=== PATIENT | female | born 1960 | race Caucasian/White ===

== ENCOUNTER → 2020-03-09 08:26 | Outpatient (BNVA) | payer MEDICARE, OTHER, SELFPAY | PROVIDERS: PCP Family Medicine; Referring Provider Family Medicine; Visit Provider Student in an Organized Health Care Education/Training Program | DX: G89.29 Other chronic pain (principal); M54.5 Low back pain | CPT/HCPCS: 99212 ==

== ENCOUNTER 2021-02-17 09:40 | Outpatient (REF) | payer MEDICARE, OTHER, SELFPAY ==
[2021-02-17 12:23] LABS: Alanine Aminotransferase 91 U/L (0-31); Albumin Level 4.7 g/dL (3.5-5.0); Alkaline Phosphatase 73 U/L (39-117); Anion Gap 13 (12-20); Aspartate Amino Transferase 38 U/L (5-31); Bilirubin Total 0.3 mg/dL (0.0-1.0); Blood Urea Nitrogen 17 mg/dL (9-16); Calcium 9.9 mg/dL (8.4-10.2); Carbon Dioxide 24 mmol/L (22-29); Chloride 101 mmol/L (96-108); Estimated Glomerular Filt Rate 43; Glucose Random 98 mg/dL (60-115); Potassium 5.2 mmol/L (3.3-5.1); Sodium 133 mmol/L (135-145)
== END 2021-02-17 09:41 | disposition home or self-care (01) ==
LOC: HO.LAB 09:40
PROVIDERS: PCP Family Medicine; Visit Provider Nurse Practitioner Family
DX: M54.30 Sciatica, unspecified side (principal); G89.29 Other chronic pain; Z79.891 Long term (current) use of opiate analgesic; Z87.891 Personal history of nicotine dependence; Z79.899 Other long term (current) drug therapy
CPT/HCPCS: 36415; 80053; 99212

== ENCOUNTER → 2021-11-21 07:53 | Outpatient (BNVA) | payer MEDICARE, OTHER, SELFPAY | PROVIDERS: PCP Family Medicine; Visit Provider Nurse Practitioner Family | DX: G89.29 Other chronic pain (principal); M54.50 Low back pain, unspecified; M10.9 Gout, unspecified; M21.611 Bunion of right foot; M21.612 Bunion of left foot; Z79.899 Other long term (current) drug therapy | CPT/HCPCS: 99212 ==

== ENCOUNTER → 2022-06-20 14:17 | Outpatient (BNVA) | payer MEDICARE, OTHER, SELFPAY | PROVIDERS: PCP Family Medicine; Visit Provider Nurse Practitioner Family | DX: M10.9 Gout, unspecified (principal); M21.611 Bunion of right foot; M21.612 Bunion of left foot; M47.812 Spondylosis without myelopathy or radiculopathy, cervical region; M47.816 Spondylosis without myelopathy or radiculopathy, lumbar region | CPT/HCPCS: 99212 ==

== ENCOUNTER 2022-12-19 14:28 | Outpatient (AMB) | payer MEDICARE, OTHER, SELFPAY ==
[2022-12-19 14:40] VITALS: BP 112/68; PULSE 74; TEMP 36.8; O2SAT 91; BMI 29.8
--- NOTE | 2022-12-19 14:40 | A.OFFVIS_ITS ---
Intake Vital Signs 12/19/22 14:40 Height 5 ft 6 in Weight 184 lb 11.958 oz BMI 29.8 BP 112/68 Blood Pressure Location Rt brachial Position Sitting Pulse 74 Pulse Source Pulse Oximeter Temp 98.2 F Temp Source Skin Pulse Oximetry (%) 91 L Intake Visit Reasons: lbp Intake Note: * Pt seen today for lbp follow up. * C/o morning stiffnes. States the pain is worse in the morning. * Mentions Chelle wanted her to go off of gabapentin but she could not move because of the pain when she tried to stop taking it. Certified Pediatric Nurse Practitioner Required: No Accompanied by: Self / Same As Patient Allergies epinephrine Allergy (Severe, Verified 12/19/22 14:46) seizures,rapid heartbeat penicillin V Allergy (Mild, Verified 12/19/22 14:46) Rash sulfur Allergy (Mild, Verified 12/19/22 14:46) Rash Lactose Allergy (Intermediate, Uncoded 12/19/22 14:46) abd pain Erythromycin Allergy (Mild, Uncoded 12/19/22 14:46) Rash Medication List - Last Reconciled 12/19/22 by Justina Edwards MD albuterol sulfate 90 mcg/actuation 2 puffs inhalation Q6H PRN allopurinol 300 mg PO DAILY atorvastatin 20 mg PO DAILY gabapentin 800 mg PO TID metoclopramide HCl 10 mg PO DAILY metoprolol tartrate 50 mg PO BID pantoprazole 40 mg PO DAILY tizanidine 2 mg PO TID PRN tramadol 50 mg PO QID HPI HPI Comments History of Present Illness Details 62yoF presents for follow-up of back pain. Last seen by Shelby Camarena 07/05 Patient states that she continues have to feel about the same. Continues to have mid to lower back pain that intermittently radiates to her right lower extremity. Gets pain and stiffness in her hands. Usually worse in the morning. Improved with taking her meds and putting her hands under warm water. Continues to take gabapentin 800 mg t.i.d., tizanidine 2 mg t.i.d. and tramadol 50 mg q.i.d. PFSH Family History Mother Rheumatoid arthritis Father Rheumatoid arthritis Maternal Aunt Osteoarthritis Social History Alcohol intake: never Patient Tobacco Use Status: Former Tobacco user Tobacco use type: Cigarette Substance Use Type: Marijuana Review of Systems [facility] [place] pain and Reports arthralgias Physical Exam Vital Signs: Last Vital Signs Temp 98.2 F 12/19/22 14:40 Pulse 74 12/19/22 14:40 BP 112/68 12/19/22 14:40 Pulse Ox 91 L 12/19/22 14:40 BMI result Body Mass Index 29.8 Const General: cooperative, healthy appearing and comfortable Nutritional Appearance: overweight Orientation/consciousness: patient oriented x3 Limitations: no limitations HEENT Head: Yes normocephalic and Yes atraumatic Mouth: moist mucous membranes Resp Effort & Inspection: normal respiratory effort and able to speak in complete sentences Back/Spine/Pelvis Thoracic/Lumbar Spine: Thoracic/lumbar scoliosis Neuro General: patient oriented x3 Extrem Other: Osteoarthritic changes of both hands with prominent Fitz's and Heberden's nodes Assessment & Plan Assessment & Plan (1) Degenerative arthritis of lumbar spine: Code(s): M47.816 - Spondylosis without myelopathy or radiculopathy, lumbar region Plan: 62-year-old female patient with chronic back pain. History of scoliosis.? Previous x-rays showed degenerative changes in the cervical, thoracic and lumbar spine.? Her pain is well controlled at this time with tizanidine, tramadol and gabapentin.? She states that she tried to reduce the gabapentin dose and she felt she was frozen she states that she has been on this combination of meds for more than 20 years without side effects. Continue current meds. Refilled Patient states that she has done labs recently at [facility]. Will attempt to retrieve those labs. (2) Degenerative arthritis of cervical spine: Code(s): M47.812 - Spondylosis without myelopathy or radiculopathy, cervical region Plan: Continue current medications. (3) Gout: Code(s): M10.9 - Gout, unspecified Plan: Following with Nephrology and treated for gout. Currently taking 300 mg of allopurinol daily with good control of her gout symptoms. Medications: New tramadol 50 mg PO QID 120 tabs 2RF pain M47.816 - Spondylosis without myelopathy or radiculopathy, lumbar region Coding Level of Care Code Est Pt Level 3 (83593) Diagnoses Degenerative arthritis of lumbar spine M47.816 Degenerative arthritis of cervical spine M47.812 Gout M10.9
== END 2022-12-19 15:28 | disposition home or self-care (01) ==
PROVIDERS: PCP Family Medicine; Visit Provider Student in an Organized Health Care Education/Training Program
DX: M47.816 Spondylosis without myelopathy or radiculopathy, lumbar region (principal); M47.812 Spondylosis without myelopathy or radiculopathy, cervical region; M10.9 Gout, unspecified
CPT/HCPCS: 99213

== ENCOUNTER → 2022-12-19 14:28 | Outpatient (BNVA) | payer MEDICARE, OTHER, SELFPAY | PROVIDERS: PCP Family Medicine; Visit Provider Student in an Organized Health Care Education/Training Program | DX: M47.816 Spondylosis without myelopathy or radiculopathy, lumbar region (principal); M47.812 Spondylosis without myelopathy or radiculopathy, cervical region; M10.9 Gout, unspecified | CPT/HCPCS: 99212 ==

== ENCOUNTER 2023-08-07 09:41 | Outpatient (AMB) | payer MEDICARE, OTHER, SELFPAY ==
--- NOTE | 2023-08-07 09:42 | MHC.OFFVIS ---
Intake Vital Signs 08/07/23 09:49 Height 5 ft 6 in Weight 177 lb 4.026 oz BMI 28.6 BP 102/62 Blood Pressure Location Lt brachial Position Sitting Pulse 80 Pulse Source Pulse Oximeter Temp 97 F Temp Source Skin Pulse Oximetry (%) 95 Oxygen Delivery Method Room Air Intake Visit Reasons: LBP/CMI/CONFIRMED Intake Note: Patient last seen 12/19/22 presents today for follow up. Reports stiffness in her hands. Feels her gabapentin is wearing off before the next dose. 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 Accompanied by: Self / Same As Patient Allergies epinephrine Allergy (Severe, Verified 12/19/22 14:46) seizures,rapid heartbeat penicillin V Allergy (Mild, Verified 12/19/22 14:46) Rash sulfur Allergy (Mild, Verified 12/19/22 14:46) Rash Lactose Allergy (Intermediate, Uncoded 12/19/22 14:46) abd pain Erythromycin Allergy (Mild, Uncoded 12/19/22 14:46) Rash Medication List - Last Reconciled 08/07/23 by Justina Edwards MD albuterol sulfate 90 mcg/actuation 2 puffs inhalation Q6H PRN allopurinol 300 mg PO DAILY atorvastatin 20 mg PO DAILY gabapentin 800 mg PO TID metoclopramide HCl 10 mg PO DAILY metoprolol tartrate 50 mg PO BID pantoprazole 40 mg PO DAILY tizanidine 2 mg PO TID PRN tramadol 50 mg PO Q6H PRN HPI HPI Comments History of Present Illness Details 62yoF with generalized osteoarthritis returns for follow-up. She states that recently she has been have bilateral hand stiffness. She feels that she feels the stiffness a few hours before she is due for her next gabapentin dose. And the gabapentin takes about 90 minutes to work. She gets intermittent triggering of both middle fingers, sometimes she gets triggering of the ring fingers as well. She stated that she had a trigger finger injection about 10 years ago and lasted at least 3 months. [facility] Family History Mother Rheumatoid arthritis Father Rheumatoid arthritis Maternal Aunt Osteoarthritis Social History Alcohol intake: never Patient Tobacco Use Status: Former Tobacco user Tobacco use type: Cigarette Substance Use Type: Marijuana Review of Systems [facility] [place] Reports arthralgias and Reports stiffness Physical Exam Vital Signs: Last Vital Signs Temp 97 F 08/07/23 09:49 Pulse 80 08/07/23 09:49 BP 102/62 08/07/23 09:49 Pulse Ox 95 08/07/23 09:49 Oxygen Delivery Method Room Air 08/07/23 09:49 BMI result Body Mass Index 28.6 Const General: cooperative, healthy appearing and comfortable Nutritional Appearance: overweight Orientation/consciousness: patient oriented x3 Limitations: no limitations HEENT Head: Yes normocephalic and Yes atraumatic Mouth: moist mucous membranes Resp Effort & Inspection: normal respiratory effort and able to speak in complete sentences Back/Spine/Pelvis Thoracic/Lumbar Spine: Thoracic/lumbar scoliosis Neuro General: patient oriented x3 Extrem Other: Osteoarthritic changes of both hands with prominent Fitz's and Heberden's nodes Her right hand triggering of right index finger and middle finger Left hand triggering of left middle finger Office Procedures Tendon Injection Tendon Injection Details: With patient's consent, The right palm was prepped with ChloraPrep and alcohol. Under a topical ethyl chloride spray the [3rd] flexor tendon sheath was injected with 20 mg of triamcinolone and 0.2 cc of 1% lidocaine. Then, The palm of the left hand was prepped with ChloraPrep and alcohol. Under topical ethyl chloride spray the [3rd] flexor tendon sheath was injected with 20 mg of triamcinolone and 0.2 cc of 1% lidocaine. The patient tolerated the procedure without any acute complications. [id number] Tendon Sheath Injection All charges added?: Procedure code (CPT) selection complete (Trigger finger x2) Assessment & Plan Assessment & Plan (1) Degenerative arthritis of lumbar spine: Code(s): M47.816 - Spondylosis without myelopathy or radiculopathy, lumbar region Qualifiers: Spinal osteoarthritis complication: without myelopathy or radiculopathy Qualified Code(s): M47.816 - Spondylosis without myelopathy or radiculopathy, lumbar region Plan: 62-year-old female patient with chronic back pain. History of scoliosis.? Previous x-rays showed degenerative changes in the cervical, thoracic and lumbar spine.? Her pain is well controlled at this time with tizanidine, tramadol and gabapentin.? She states that she tried to reduce the gabapentin dose and she felt she was frozen she states that she has been on this combination of meds for more than 20 years without side effects. Continue current meds. (2) Gout: Code(s): M10.9 - Gout, unspecified Qualifiers: Gout site: multiple sites Gout etiology: idiopathic Chronicity: chronic Presence of tophus: without tophus Qualified Code(s): M1A.09X0 - Idiopathic chronic gout, multiple sites, without tophus (tophi) Plan: Following with Nephrology and treated for gout. Currently taking 300 mg of allopurinol daily with good control of her gout symptoms. (3) Osteoarthritis of hands, bilateral: Code(s): M19.041 - Primary osteoarthritis, right hand; M19.042 - Primary osteoarthritis, left hand Qualifiers: Osteoarthritis type: primary Qualified Code(s): M19.041 - Primary osteoarthritis, right hand; M19.042 - Primary osteoarthritis, left hand Plan: Referred to occupational therapy (4) Acquired trigger finger of both middle fingers: Code(s): M65.331 - Trigger finger, right middle finger; M65.332 - Trigger finger, left middle finger Plan: With patient's consent, trigger finger of both middle fingers was injected in clinic today. Advised patient to start wearing a finger splints. Follow-up with occupational therapy Plan I spent 26 minutes reviewing patient's chart, evaluating patient, placing orders, counseling patient and documenting in the chart Orders: Orders AMB Injection-Tendon Today M65.331 - Trigger finger, right middle finger, M65.332 - Trigger finger, left middle finger OT Evaluation and Treatment Today M19.041 - Primary osteoarthritis, right hand, M19.042 - Primary osteoarthritis, left hand, M65.331 - Trigger finger, right middle finger, M65.332 - Trigger finger, left middle finger Coding Level of Care Code Est Pt Level 4 (60420) Diagnoses Spondylosis of lumbar region without myelopathy or radiculopathy M47.816 Spinal osteoarthritis complication: without myelopathy or radiculopathy Idiopathic chronic gout of multiple sites without tophus M1A.09X0 Gout site: multiple sites Gout etiology: idiopathic Chronicity: chronic Presence of tophus: without tophus Primary osteoarthritis of both hands M19.041; M19.042 Osteoarthritis type: primary Acquired trigger finger of both middle fingers M65.331; M65.332 CPT Codes Tendon Injection - Tendon Injection 1: [id number] Tendon Sheath Injection ([id number])
[2023-08-07 09:49] VITALS: BP 102/62; PULSE 80; TEMP 36.1; O2SAT 95; BMI 28.6
== END 2023-08-07 10:16 | disposition home or self-care (01) ==
PROVIDERS: PCP Family Medicine; Visit Provider Student in an Organized Health Care Education/Training Program
DX: M47.816 Spondylosis without myelopathy or radiculopathy, lumbar region (principal); M1A.09X0 Idiopathic chronic gout, multiple sites, without tophus (tophi); M19.041 Primary osteoarthritis, right hand; M19.042 Primary osteoarthritis, left hand; M65.331 Trigger finger, right middle finger; M65.332 Trigger finger, left middle finger
CPT/HCPCS: 20550; 99213

== ENCOUNTER → 2023-08-07 09:41 | Outpatient (BNVA) | payer MEDICARE, OTHER, SELFPAY | PROVIDERS: PCP Family Medicine; Visit Provider Student in an Organized Health Care Education/Training Program | DX: M19.041 Primary osteoarthritis, right hand (principal); M19.042 Primary osteoarthritis, left hand; M65.331 Trigger finger, right middle finger; M65.332 Trigger finger, left middle finger; M25.642 Stiffness of left hand, not elsewhere classified; M25.641 Stiffness of right hand, not elsewhere classified; M47.816 Spondylosis without myelopathy or radiculopathy, lumbar region; M1A.09X0 Idiopathic chronic gout, multiple sites, without tophus (tophi); R20.2 Paresthesia of skin; Z79.899 Other long term (current) drug therapy | CPT/HCPCS: 20550; 99212 ==

== ENCOUNTER 2024-04-16 13:15 | Outpatient (AMB) | payer MEDICARE, OTHER, SELFPAY ==
--- NOTE | 2024-04-16 13:22 | MHC.OFFVIS ---
Vital Signs 04/16/24 13:28 Height 5 ft 6 in Weight 184 lb 11.958 oz BMI 29.8 BP 120/72 Blood Pressure Location Lt brachial Position Sitting Pulse 80 Pulse Source Pulse Oximeter Pulse Oximetry (%) 96 Oxygen Delivery Method Room Air Intake Visit Reasons: OA Intake Note: Patient presents for OA. Allergies epinephrine Allergy (Severe, Verified 04/16/24 13:27) seizures,rapid heartbeat penicillin V Allergy (Mild, Verified 04/16/24 13:27) Rash sulfur Allergy (Mild, Verified 04/16/24 13:27) Rash Lactose Allergy (Intermediate, Uncoded 12/19/22 14:46) abd pain Erythromycin Allergy (Mild, Uncoded 12/19/22 14:46) Rash Medication List - Last Reconciled 04/16/24 by Justina Edwards MD albuterol sulfate 90 mcg/actuation 2 puffs inhalation Q6H PRN allopurinol 300 mg PO DAILY atorvastatin 20 mg PO DAILY gabapentin 800 mg PO TID metoclopramide HCl 10 mg PO DAILY metoprolol tartrate 50 mg PO BID pantoprazole 40 mg PO DAILY tizanidine 2 mg PO TID PRN tramadol 50 mg PO Q6H PRN HPI Comments Details: 63yoF with generalized osteoarthritis returns for follow-up. The trigger finger injection done last visit 9 months ago was quite effective. She states that the right middle finger injection was great, she starting to have some stiffness of her left 3rd finger but it is not painful. [facility] Family History Mother Rheumatoid arthritis Father Rheumatoid arthritis Maternal Aunt Osteoarthritis Social History Alcohol intake: never Patient Tobacco Use Status: Former Tobacco user Tobacco use type: Cigarette Substance Use Type: Marijuana Review of Systems [facility] [place] Reports arthralgias and Reports stiffness Physical Exam Vital Signs: Last Vital Signs Pulse 80 04/16/24 13:28 BP 120/72 04/16/24 13:28 Pulse Ox 96 04/16/24 13:28 Oxygen Delivery Method Room Air 04/16/24 13:28 BMI result Body Mass Index 29.8 Const General: cooperative, healthy appearing and comfortable Nutritional Appearance: overweight Orientation/consciousness: patient oriented x3 Limitations: no limitations HEENT Head: Yes normocephalic and Yes atraumatic Mouth: moist mucous membranes Resp Effort & Inspection: normal respiratory effort and able to speak in complete sentences Back/Spine/Pelvis Thoracic/Lumbar Spine: Thoracic/lumbar scoliosis Neuro General: patient oriented x3 Extrem Other: Osteoarthritic changes of both hands with prominent Fitz's and Heberden's nodes Her right hand triggering of middle finger Mild left 3rd finger flexor tendon tenderness Assessment & Plan Assessment & Plan (1) Degenerative arthritis of lumbar spine: Code(s): M47.816 - Spondylosis without myelopathy or radiculopathy, lumbar region Category: Medical Qualifiers: Spinal osteoarthritis complication: without myelopathy or radiculopathy Qualified Code(s): M47.816 - Spondylosis without myelopathy or radiculopathy, lumbar region Plan: 62-year-old female patient with chronic back pain. History of scoliosis.? Previous x-rays showed degenerative changes in the cervical, thoracic and lumbar spine.? Her pain is well controlled at this time with tizanidine, tramadol and gabapentin.? She states that she tried to reduce the gabapentin dose and she felt she was frozen she states that she has been on this combination of meds for more than 20 years without side effects. Continue current meds. Follow-up in 6 months (2) Gout: Code(s): M10.9 - Gout, unspecified Plan: Following with Nephrology and treated for gout. Currently taking 300 mg of allopurinol daily with good control of her gout symptoms. (3) Osteoarthritis of hands, bilateral: Code(s): M19.041 - Primary osteoarthritis, right hand; M19.042 - Primary osteoarthritis, left hand Category: Medical Qualifiers: Osteoarthritis type: primary Qualified Code(s): M19.041 - Primary osteoarthritis, right hand; M19.042 - Primary osteoarthritis, left hand (4) Acquired trigger finger of both middle fingers: Code(s): M65.331 - Trigger finger, right middle finger; M65.332 - Trigger finger, left middle finger Category: Medical Plan: Bilateral middle finger trigger finger injected with Kenalog 07/2023 with good relief Injections can be repeated as needed Advised patient to wear finger splints at night Plan I spent 15 minutes reviewing patient's chart, evaluating patient, 0counseling patient and documenting in the chart Coding Level of Care Code Est Pt Level 3 (14533) Diagnoses Spondylosis of lumbar region without myelopathy or radiculopathy M47.816 Spinal osteoarthritis complication: without myelopathy or radiculopathy Gout M10.9 Primary osteoarthritis of both hands M19.041; M19.042 Osteoarthritis type: primary Acquired trigger finger of both middle fingers M65.331; M65.332
[2024-04-16 13:28] VITALS: BP 120/72; PULSE 80; O2SAT 96; BMI 29.8
== END 2024-04-16 13:54 | disposition home or self-care (01) ==
PROVIDERS: PCP Family Medicine; Visit Provider Student in an Organized Health Care Education/Training Program
DX: M47.816 Spondylosis without myelopathy or radiculopathy, lumbar region (principal); M10.9 Gout, unspecified; M19.041 Primary osteoarthritis, right hand; M19.042 Primary osteoarthritis, left hand; M65.331 Trigger finger, right middle finger; M65.332 Trigger finger, left middle finger
CPT/HCPCS: 99213

== ENCOUNTER → 2024-04-16 13:15 | Outpatient (BNVA) | payer MEDICARE, OTHER, SELFPAY | PROVIDERS: PCP Family Medicine; Visit Provider Student in an Organized Health Care Education/Training Program | DX: M47.816 Spondylosis without myelopathy or radiculopathy, lumbar region (principal); M10.9 Gout, unspecified; M19.041 Primary osteoarthritis, right hand; M19.042 Primary osteoarthritis, left hand; M65.331 Trigger finger, right middle finger; M65.332 Trigger finger, left middle finger | CPT/HCPCS: 99212 ==

== ENCOUNTER 2024-10-14 13:32 | Outpatient (AMB) | payer MEDICARE, OTHER, SELFPAY ==
--- OUTSIDE RECORDS SUMMARY | 2024-10-14 13:45 | XMS_ITS | Encounter Summary ---
Author Organization [facility], Address [address] [place] [address] Phone Care Team Providers Care Retail Client Solutions Analyst Name Role Phone Arslan Birmingham DO Primary Care Provider [phone] Encounter Details Date Type Department Care Team (Late st Contact Info) Description 07/28/2021 Documentation Only [facility] [address] [place] [address] Arslan Birmingham DO [address] [place] [address] Social History Tobacco Use Types Packs/Day Years Used Date Smoking Tobacco: Never Assessed Comments Unknown Sex and Gender Information Value Date Recorded Sex Assigned at Not on file Legal Sex Female 4:49 PM EDT Gender Identity Not on file Sexual Orientation Not on file documented as of this encounter Plan of Treatment Upcoming Encounters Date Type Department Care Team (Late st Contact Info) Description 04/05/2025 1:30 PM EST Office Visit [facility] [address] [place] [address] Lyle Hay MD [address] [place] [address] [place] [address] documented as of this encounter Visit Diagnoses Not on filedocumented in this encounter Care Teams Retail Client Solutions Analyst Relationship Specialty Start Date End Date Arslan Birmingham DO [address] [place] [address] PCP - General Family Medicine 07/25/21 documented as of this encounter
[2024-10-14 13:59] VITALS: BP 122/78; PULSE 77; O2SAT 96; BMI 29.8
--- NOTE | 2024-10-14 13:59 | MHC.OFFVIS ---
Vital Signs 10/14/24 13:59 Height 5 ft 6 in Weight 184 lb 11.958 oz BMI 29.8 BP 122/78 Blood Pressure Location Lt brachial Position Sitting Pulse 77 Pulse Source Pulse Oximeter Pulse Oximetry (%) 96 Oxygen Delivery Method Room Air Intake Visit Reasons: OA Intake Note: Patient presents for follow up on gout, and osteoarthritis. Allergies epinephrine Allergy (Severe, Verified 10/14/24 14:03) seizures,rapid heartbeat penicillin V Allergy (Mild, Verified 10/14/24 14:03) Rash sulfur Allergy (Mild, Verified 10/14/24 14:03) Rash Lactose Allergy (Intermediate, Uncoded 10/14/24 14:03) abd pain Erythromycin Allergy (Mild, Uncoded 10/14/24 14:03) Rash HPI Comments Details: Patient is a 63-year-old female with asthma, hyperlipidemia, hypertension, polyarticular osteoarthritis and non crystal proven gout here today for follow up Interval History: Patient last seen 04/16/[address] Edwards. At that time she was following up for her polyarticular osteoarthritis. She had previously gotten trigger finger injection which was effective for the right middle finger. Today, She is doing well Has an uncoming abdominal surgery for a precancernous lesion in the bile duct Rheumatologic History: Polyarticular osteoarthritis Diagnosed with gout from nephrology Current Rheumatology Medication(s): gabapentin 800mg tid tizanidine 2mg tid tramadol 50mg q6hr PFSH Family History Mother Rheumatoid arthritis Father Rheumatoid arthritis Maternal Aunt Osteoarthritis Social History Alcohol intake: never Patient Tobacco Use Status: Former Tobacco user Tobacco use type: Cigarette Substance Use Type: Marijuana Review of Systems Const Details: Review of Systems Constitutional: Denies fever, chills, weight loss ENT: Denies vision changes, eye pain or eye redness, dental caries, dry mouth GI: Denies nausea, vomiting, diarrhea, abdominal pain, change in BM Pulm: Denies SOB, PHILLIPS, hemoptysis, wheezing Cards: Denies chest pain, palpitations Skin: Denies Raynaud's, rash, nail changes, photosensitivity, QUALITY ASSURANCE COORDINATOR: Denies headaches, weakness, paresthesias, recurrent falls MSK: as per HPI All other systems reviewed and are unremarkable except noted above Physical Exam Vital Signs: Last Vital Signs Pulse 77 10/14/24 13:59 BP 122/78 10/14/24 13:59 Pulse Ox 96 10/14/24 13:59 Oxygen Delivery Method Room Air 10/14/24 13:59 BMI result Body Mass Index 29.8 Vital signs reviewed Physical Examination CONSTITUITIONAL Patient alert and cooperative. Well appearing and in no apparent painful distress HEENT Conjunctiva and sclera clear. ?Pupils equal round and reactive to light. ?No lymphadenopathy. ? CHEST/RESPIRATORY SYSTEM Normal respiratory effort and able to speak in complete sentences. ?Clear to auscultation bilaterally. ?No crackles, rales, rhonchi, wheezes heard. CARDIAC SYSTEM Regular rate and rhythm. ?S1 and S2 heard no murmurs. ?Radial pulses intact bilaterally MSK Hands: ?Able to make a fist. No synovitis noted to the MCPs, PIPs or DIPs. ?No tenderness to palpation of these joints. Prominent herbeden's nodes Wrists: ?Full range of motion at the wrists without pain. ?No tenderness to palpation or synovitis noted to the wrists. Elbows: Full range of motion without pain. No tenderness, weakness, swelling, increased warmth or erythema. Shoulders: Full range of active range of motion without pain. No tenderness, weakness, swelling, increased warmth or erythema. Knees: ?Full range of motion. ?No tenderness, swelling, increased warmth or erythema.?Bilateral crepitations noted Ankles: Full range of motion. ?No tenderness, swelling, increased warmth or erythema.? Feet: ?Negative squeeze test. ?No tenderness to palpation or swelling of the MTPs. Tender points:?No tenderness to palpation of the bilateral trapezius, supraspinatus, greater trochanters, anterior costochondral junctions, bilateral gluteal areas, bilateral suboccipital muscle insertions SKIN Skin intact without rashes. Results Reviewed Results Reviewed: [facility] results 07/25/2024 reviewed WBC 9.7 Hemoglobin 13.6 Platelets 362 Creatinine 1.14 EGFR 53 AST/ALT 20/ Uric acid 5.0 ESR 12 CRP 5 Assessment & Plan Assessment & Plan (1) Polyarticular osteoarthritis: Code(s): M15.9 - Polyosteoarthritis, unspecified Plan: #Polyarticular OA Patient is a 63 y.o. female with polyarticular osteoarthritis here today for follow up. Patient currently stable on her regimen of gabapentin, tizanidine and tramadol. Plan - Tizanidine 2mg tid - Tramadol 50mg q6 - Gabapentin 800mg tid - RTC 6 months (2) Gout: Code(s): M10.9 - Gout, unspecified Category: Medical Qualifiers: Gout site: multiple sites Gout etiology: unspecified cause Chronicity: chronic Qualified Code(s): M1A.09X0 - Idiopathic chronic gout, multiple sites, without tophus (tophi) Plan: #Non crystal proven gout Patient with non crystal proven gout Currently on allopurinol from nephrology UA at goal Plan I spent 25 minutes reviewing the record and labs, taking a history, examining the patient, discussing the treatment plan, ordering diagnostic work up and documenting in the medical record Orders: Orders C Reactive Protein 6 Months M47.816 - Spondylosis without myelopathy or radiculopathy, lumbar region Comprehensive Met. Panel 6 Months M47.816 - Spondylosis without myelopathy or radiculopathy, lumbar region Uric Acid 6 Months M47.816 - Spondylosis without myelopathy or radiculopathy, lumbar region Erythrocyte Sedimentation Rate 6 Months M47.816 - Spondylosis without myelopathy or radiculopathy, lumbar region Medications: Refilled tizanidine 2 mg PO TID PRN 270 tabs 1RF for muscle spasm M47.816 - Spondylosis without myelopathy or radiculopathy, lumbar region gabapentin 800 mg PO TID 90 tabs 2RF M47.816 - Spondylosis without myelopathy or radiculopathy, lumbar region tramadol 50 mg PO Q6H 30 days 120 tabs 5RF M47.816 - Spondylosis without myelopathy or radiculopathy, lumbar region Coding Level of Care Code Est Pt Level 3 (03441) Diagnoses Polyarticular osteoarthritis M15.9 Chronic gout of multiple sites, unspecified cause M1A.09X0 Gout site: multiple sites Gout etiology: unspecified cause Chronicity: chronic
== END 2024-10-14 14:37 | disposition home or self-care (01) ==
LOC: HO.RHE 13:34
PROVIDERS: PCP Family Medicine; Visit Provider Student in an Organized Health Care Education/Training Program
DX: M15.9 Polyosteoarthritis, unspecified (principal); M1A.09X0 Idiopathic chronic gout, multiple sites, without tophus (tophi)
CPT/HCPCS: 99213

== ENCOUNTER → 2024-10-14 13:32 | Outpatient (BNVA) | payer MEDICARE, OTHER, SELFPAY | PROVIDERS: PCP Family Medicine; Visit Provider Student in an Organized Health Care Education/Training Program | DX: M15.9 Polyosteoarthritis, unspecified (principal); M1A.09X0 Idiopathic chronic gout, multiple sites, without tophus (tophi) | CPT/HCPCS: 99212 ==

== ENCOUNTER 2025-04-15 14:17 | Outpatient (AMB) | payer MEDICARE, OTHER, SELFPAY ==
--- NOTE | 2025-04-15 14:19 | A.OFFVIS_ITS ---
Vital Signs 04/15/25 14:31 Height 5 ft 6 in Weight 169 lb 15.622 oz BMI 27.4 BP 162/80 H Blood Pressure Location Rt brachial Position Sitting Pulse 97 Pulse Source Pulse Oximeter Pulse Oximetry (%) 96 Oxygen Delivery Method Room Air Intake Visit Reasons: OA Intake Note: Patient presents today for Osteoarthritis follow up and test results. Statistical Methods Teacher Required: No Accompanied by: Self / Same As Patient Allergies epinephrine Allergy (Severe, Verified 04/15/25 14:24) seizures,rapid heartbeat penicillin V Allergy (Mild, Verified 04/15/25 14:24) Rash sulfur Allergy (Mild, Verified 04/15/25 14:24) Rash Lactose Allergy (Intermediate, Uncoded 10/14/24 14:03) abd pain Erythromycin Allergy (Mild, Uncoded 10/14/24 14:03) Rash Medication List - Last Reconciled 04/15/25 by Abimbola Smith MD albuterol sulfate 90 mcg/actuation 2 puffs inhalation Q6H PRN allopurinol 300 mg PO DAILY atorvastatin 20 mg PO DAILY gabapentin 800 mg PO TID metoclopramide HCl 10 mg PO DAILY pantoprazole 40 mg PO DAILY tizanidine 2 mg PO TID PRN tramadol 50 mg PO Q6H 30 days verapamil 120 mg PO DAILY HPI Comments Details: Patient is a 64-year-old female with asthma, hyperlipidemia, hypertension, polyarticular osteoarthritis and non crystal proven gout here today for follow up Interval History: Patient last seen 10/14/2024 with me. 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 Today - On gabapentin 800mg tid, tizanidine 2mg tid, tramadol 50mg q6hr - Doing well overall - Recovering well after her surgery - Still feels her current regimen is helpful Rheumatologic History: Polyarticular osteoarthritis Diagnosed with gout from nephrology Current Rheumatology Medication(s): gabapentin 800mg tid tizanidine 2mg tid tramadol 50mg q6hr PFSH Surgical History (Updated 04/15/25 @ 14:41 by HAYLEY Pool) History of partial pancreatectomy Family History Mother Rheumatoid arthritis Father Rheumatoid arthritis Maternal Aunt Osteoarthritis Social History Alcohol intake: never Patient Tobacco Use Status: Former Tobacco user Tobacco use type: Cigarette Substance Use Type: Marijuana Review of Systems Narrative Review of Systems Constitutional: Denies fever, chills, weight loss ENT: Denies vision changes, eye pain or eye redness, dental caries, dry mouth GI: Denies nausea, vomiting, diarrhea, abdominal pain, change in BM Pulm: Denies SOB, PHILLIPS, hemoptysis, wheezing Cards: Denies chest pain, palpitations Skin: Denies Raynaud's, rash, nail changes, photosensitivity, GREEN PIPEFITTER: Denies headaches, weakness, paresthesias, recurrent falls MSK: as per HPI All other systems reviewed and are unremarkable except noted above Physical Exam Exam Exam: Vital signs reviewed Physical Examination CONSTITUITIONAL Patient alert and cooperative. Well appearing and in no apparent painful distress MSK Hands * Right Hand: Able to make a fist. No swelling or tenderness to palpation of the MCPs, PIPs or DIPs. No deformities noted. * Left Hand: Able to make a fist. No swelling or tenderness to palpation of the MCPs, PIPs or DIPs. No deformities noted. Wrists * Right Wrist: Full ROM to flexion and extension. No swelling or TTP * Left Wrist: Full ROM to flexion and extension. No swelling or TTP Elbows * Right Elbow: Full ROM. No swelling or TTP. No TTP of the medial epicondyle. No TTP of the lateral epicondyle * Left Elbow: Full ROM. No swelling or TTP. No TTP of the medial epicondyle. No TTP of the lateral epicondyle Shoulders * Right shoulder: Full ROM. No swelling noted. No TTP of the AC joint. No TTP of the subacromial bursa. No TTP of the posterior shoulder * Left shoulder: Full ROM. No swelling noted. No TTP of the AC joint. No TTP of the subacromial bursa. No TTP of the posterior shoulder Hips * Right hip: Good ROM. No pain elicited with hip flexion/internal rotation/ex ternal rotation * Left hip: Good ROM. No pain elicited with hip flexion/internal rotation/external rotation Hip bursa: No tenderness to palpation bilaterally Knees * Right knee: Full ROM. No swelling noted. No TTP of the knee joint line. No TTP of pes anserine bursa * Left knee: Full ROM. No swelling noted. No TTP of the knee joint line. No TTP of pes anserine bursa. Ankles * Right ankle: Good ankle dorsiflexion and plantar flexion. No swelling. No TTP of the ankle joint * Left ankle: Good ankle dorsiflexion and plantar flexion. No swelling. No TTP of the ankle joint Feet * Right foot: Negative squeeze test * Left foot: Negative squeeze test Tender points? * No tenderness to palpation of the bilateral trapezius, supraspinatus, anterior costochondral junctions, bilateral suboccipital muscle insertions SKIN No rashes Vital Signs: Last Vital Signs Pulse 97 04/15/25 14:31 BP 162/80 H 04/15/25 14:31 Pulse Ox 96 04/15/25 14:31 Oxygen Delivery Method Room Air 04/15/25 14:31 BMI result Body Mass Index 27.4 Results Reviewed Results Reviewed: Lab [facility] 04/13/2025 WBC Hb Plt BUN 13 Cr 0.86 eGFR 74 AST 20 ALT 25 Uric Acid 4.3 ESR 3 CRP 3.54 Assessment & Plan Assessment & Plan (1) Polyarticular osteoarthritis: Code(s): M15.9 - Polyosteoarthritis, unspecified Plan: #Polyarticular OA Patient is a 64 y.o. female with polyarticular osteoarthritis here today for follow up. Patient currently stable on her regimen of gabapentin, tizanidine and tramadol. Plan - Tizanidine 2mg tid - Tramadol 50mg q6 - Gabapentin 800mg tid - RTC 6 months (2) Gout: Code(s): M10.9 - Gout, unspecified Category: Medical Qualifiers: Gout site: multiple sites Gout etiology: unspecified cause Chronicity: chronic Qualified Code(s): M1A.09X0 - Idiopathic chronic gout, multiple sites, without tophus (tophi) Plan: #Non crystal proven gout Patient with non crystal proven gout Currently on allopurinol from nephrology UA at goal (3) Screening for osteoporosis: Code(s): Z13.820 - Encounter for screening for osteoporosis Plan: #Screening for osteoporosis Follows up with PCP Last DEXA in 2023 Was told it was normal and only needed to take vit d and Calcium Continue follow up with PCP Plan I spent 25 minutes reviewing the record and labs, taking a history, examining the patient, discussing the treatment plan, ordering diagnostic work up and documenting in the medical record Orders: Orders Complete Blood Count Auto Diff 6 Months Z79.89 - Other usp (current) drug therapy Comprehensive Met. Panel 6 Months Z79. - Other usp (current) drug therapy C Reactive Protein 6 Months Z79. - Other rn long term care (current) drug therapy Erythrocyte Sedimentation Rate 6 Months Z79.89 - Other rn long term care (current) drug therapy Uric Acid 6 Months M1A.09X0 - Idiopathic chronic gout, multiple sites, without tophus (tophi) Medications: Changed From gabapentin 800 mg PO TID 90 tabs 2RF M47.816 - Spondylosis without myelopathy or radiculopathy, lumbar region To gabapentin 800 mg PO TID 270 tabs 1RF 90 days M47.816 - Spondylosis without myelopathy or radiculopathy, lumbar region Refilled tramadol 50 mg PO Q6H 120 tabs 5RF 30 days M47.816 - Spondylosis without myelopathy or radiculopathy, lumbar region Coding Level of Care Code Est Pt Level 3 (49239) Diagnoses Polyarticular osteoarthritis M15.9 Chronic gout of multiple sites, unspecified cause M1A.09X0 Gout site: multiple sites Gout etiology: unspecified cause Chronicity: chronic Screening for osteoporosis Z13.820
[2025-04-15 14:31] VITALS: BP 162/80; PULSE 97; O2SAT 96; BMI 27.4
== END 2025-04-15 14:59 | disposition home or self-care (01) ==
LOC: HO.RHES 14:18
PROVIDERS: PCP Family Medicine; Visit Provider Student in an Organized Health Care Education/Training Program
DX: M15.9 Polyosteoarthritis, unspecified (principal); M1A.09X0 Idiopathic chronic gout, multiple sites, without tophus (tophi); Z13.820 Encounter for screening for osteoporosis
CPT/HCPCS: 99213

== ENCOUNTER → 2025-04-15 14:17 | Outpatient (BNVA) | payer MEDICARE, OTHER, SELFPAY | PROVIDERS: PCP Family Medicine; Visit Provider Student in an Organized Health Care Education/Training Program | DX: M15.9 Polyosteoarthritis, unspecified (principal); M1A.09X0 Idiopathic chronic gout, multiple sites, without tophus (tophi); Z13.820 Encounter for screening for osteoporosis | CPT/HCPCS: 99212 ==